=== PATIENT | female | born 1985 | race Caucasian/White ===

== ENCOUNTER 2018-05-30 15:14 | Outpatient (CLI) | payer OTHER ==
[2018-05-30] MEDS ORDERED: LANSOPRAZOLE 30 MG TAB.RAP.DR PO ONE (15:46)
[2018-05-30] MEDS ORDERED: LANSOPRAZOLE 30 MG TAB.RAP.DR ONE (15:54)
[2018-05-30 15:59] LABS: APPEARANCE,URINE CLOUDY; BILIRUBIN,URINE NEGATIVE (NEGATIVE); COLOR,URINE YELLOW; GLUCOSE, URINE NEGATIVE (NEGATIVE); KETONES,URINE NEGATIVE (NEGATIVE); LEUKOCYTE ESTERASE,URINE MODERATE (NEGATIVE); NITRITE,URINE NEGATIVE (NEGATIVE); PROTEIN,URINE NEGATIVE (NEGATIVE); URINE SPECIFIC GRAVITY 1.005; UROBILINOGEN,URINE NEGATIVE mg/dL (<2.0)
[2018-05-30 16:38] LABS: URINE AMPHETAMINES SCREEN NEGATIVE; URINE BARBITURATES SCREEN NEGATIVE; URINE BENZODIAZEPINES SCREEN NEGATIVE; URINE COCAINE SCREEN NEGATIVE; URINE MARIJUANA (THC) SCREEN NEGATIVE; URINE METHADONE SCREEN NEGATIVE; URINE PHENCYCLIDINE SCREEN NEGATIVE
[2018-05-30 16:38] LABS: HEMATOCRIT 27.7 % (36.0-47.0); HEMOGLOBIN 9.2 g/dL (12.0-15.5); MEAN CORPUSCULAR HEMOGLOBIN 24.7 pg (27.0-33.4); MEAN CORPUSCULAR HGB CONC 33.2 g/dL (32.0-36.0); MEAN CORPUSCULAR VOLUME 74 fl (80-97); PLATELET COUNT 244 10^3/uL (150-450); RED BLOOD COUNT 3.72 10^6/uL (3.72-5.28); RED CELL DISTRIBUTION WIDTH 15.6 % (11.5-14.0); WHITE BLOOD COUNT 9.4 10^3/uL (4.0-10.5)
[2018-05-30 16:41] LABS: UR PRO/CREAT RATIO RESULT 0.4 mg/mg (0.0-0.2); URINE CREATININE 39.4 mg/dL (16-327); URINE PROTEIN 15.3 mg/dL (<12)
[2018-05-30 16:56] LABS: ALANINE AMINOTRANSFERASE 16 U/L (9-52); ALKALINE PHOSPHATASE 138 U/L (38-126); ANION GAP 8 (5-19); ASPARTATE AMINO TRANSFERASE 18 U/L (14-36); BILIRUBIN,DIRECT 0.1 mg/dL (0.0-0.4); BILIRUBIN,TOTAL 0.3 mg/dL (0.2-1.3); BLOOD UREA NITROGEN 6 mg/dL (7-20); CALCIUM 9.2 mg/dL (8.4-10.2); CARBON DIOXIDE 24 mmol/L (22-30); CHLORIDE 104 mmol/L (98-107); GLUCOSE 69 mg/dL (75-110); POTASSIUM 4.4 mmol/L (3.6-5.0); SODIUM 136.3 mmol/L (137-145); TOTAL PROTEIN 5.7 g/dL (6.3-8.2); URIC ACID 4.8 mg/dL (2.5-6.2)
--- NOTE | 2018-05-30 17:38 | Non Stress Test Report ---
Non Stress Test Datetime Report Generated by CPN: 05/30/2018 17:38 DEMOGRAPHIC EGA NST: 39.3 INDICATION Indication for Study: Ordered by Provider MONITORING Monitor Explained: Monitor Explained; Test Explained; Patient Verbalized Understanding Time on Monitor: 05/30/2018 17:02 Time off Monitor: 05/30/2018 17:22 NST Duration: 20 NST INTERVENTIONS NST Interventions: None Physician Notified NST: Dr. Younger BABY A: [id number] BABY A Movement : Present Contraction Frequency : irregular FHR Baseline : 135 Accelerations : 15X15 Decelerations : None Variability : Moderate 6-25bpm NST Review: Meets Criteria for Reactive NST NST Review and Verified By : Dave العلي RN NST Results: Reactive NST REPORT Report Trigger: Send Report
== END 2018-05-30 17:36 | disposition home or self-care (01) ==
LOC: LC 15:14
PROVIDERS: ATTEND Obstetrics & Gynecology
PROC: 4A1HXCZ Monitoring of Products of Conception, Cardiac Rate, External Approach (ICD-10-PCS; principal; 2018-05-30)
DX: O16.3 Unspecified maternal hypertension, third trimester (principal); Z3A.39 39 weeks gestation of pregnancy
CPT/HCPCS: 36415; 59025; 80053; 80307; 81001; 82570; 83615; 84156; 84550; 85027

== ENCOUNTER 2018-06-01 14:22 | Inpatient (IN) | payer OTHER ==
[2018-06-01 15:13] LABS: HEMATOCRIT 27.4 % (36.0-47.0); MEAN CORPUSCULAR HEMOGLOBIN 24.4 pg (27.0-33.4); MEAN CORPUSCULAR HGB CONC 32.9 g/dL (32.0-36.0); MEAN CORPUSCULAR VOLUME 74 fl (80-97); PLATELET COUNT 254 10^3/uL (150-450); RED CELL DISTRIBUTION WIDTH 15.8 % (11.5-14.0); WHITE BLOOD COUNT 8.6 10^3/uL (4.0-10.5)
[2018-06-01 15:32] LABS: BLOOD UREA NITROGEN 5 mg/dL (7-20); GLUCOSE 104 mg/dL (75-110)
[2018-06-01 15:33] LABS: ALANINE AMINOTRANSFERASE 19 U/L (9-52); ALBUMIN 2.8 g/dL (3.5-5.0); ALKALINE PHOSPHATASE 141 U/L (38-126); ANION GAP 11 (5-19); ASPARTATE AMINO TRANSFERASE 17 U/L (14-36); BILIRUBIN,TOTAL 0.2 mg/dL (0.2-1.3); CARBON DIOXIDE 19 mmol/L (22-30); CHLORIDE 108 mmol/L (98-107); POTASSIUM 4.1 mmol/L (3.6-5.0); SODIUM 137.5 mmol/L (137-145); TOTAL PROTEIN 5.9 g/dL (6.3-8.2)
[2018-06-01 15:43] LABS: URINE PROTEIN 14.6 mg/dL (<12)
[2018-06-01 15:50] LABS: URINE AMPHETAMINES SCREEN NEGATIVE; URINE BARBITURATES SCREEN NEGATIVE; URINE BENZODIAZEPINES SCREEN NEGATIVE; URINE COCAINE SCREEN NEGATIVE; URINE MARIJUANA (THC) SCREEN NEGATIVE; URINE METHADONE SCREEN NEGATIVE; URINE PHENCYCLIDINE SCREEN NEGATIVE
[2018-06-01 15:52] LABS: 24 HOUR URINE PROTEIN RESULT 420 mg/day (42-225)
[2018-06-01 16:02] LABS: UR PRO/CREAT RATIO RESULT 0.3 mg/mg (0.0-0.2); URINE CREATININE 56.4 mg/dL (16-327); URINE PROTEIN 16.5 mg/dL (<12)
[2018-06-01] MEDS ORDERED: RINGERS SOLUTION,LACTATED 1,000 ML IV PRN (16:25)
[2018-06-01] MEDS ORDERED: DINOPROSTONE 10 MG VAGINAL INSERT.SR PV PRN (16:25)
[2018-06-01] MEDS ORDERED: RINGERS SOLUTION,LACTATED 300 ML IV ONE (16:25)
--- NOTE | 2018-06-01 16:42 | Admission Physical ---
Datetime Report Generated by CPN: 06/01/2018 16:42 CURRENT ADMISSION Chief Complaint: Scheduled Induction of Labor Indication for Induction: PreEclampsia Admit Impression : Term, Intrauterine Admit Plan: Admit to Unit; Initiate Labor Induction Protocol ALLERGIES Medication Allergies: No Medication Allergies: No Known Allergies (05/30/2018) Latex: No Latex Allergies OBSTETRICAL HISTORY EDC: 06/03/2018 00:00 : 1 Para: 0 Gestational Diabetes: No Rh Sensitization: No Incompetent Cervix: No JASWINDER: No Infertility: No ART Treatment: Yes Uterine Anomaly: No IUGR: No Hx Previous C/S: No Macrosomia: No Hx Loss/Stillborn: No PIH: No Hx : No Placenta Previa/Abruption: No Depression/PP Depression: Yes PTL/PROM: No Post Hemorrhage: No Current Procedures: Ultrasound; NST Obstetrical History Comments: G1: current SEE RECORDS Alcohol: No Marijuana : No Cocaine: No Other Illicit Drugs: No Cigarettes: Never Smoker. [id number] MEDICAL HISTORY Diabetes: No Blood Transfusion: No Pulmonary Disease (Asthma, TB): No Breast Disease: Yes Hypertension: No Casing Sewer Surgery: No Heart Disease: No Hosp/Surgery: No Autoimmune Disorder: No Anesthetic Complications: No Kidney Disease: No Abnormal Pap Smear: No Neuro/Epilepsy: No Psychiatric Disorders: No Other Medical Diseases: No Hepatitis/Liver Disease: No Significant Family History: No Varicosities/Phlebitis: No Trauma/Violence : No Thyroid Dysfunction: No Medical History Comments: depression, PTSD and anxiety, hx of binging and avoiding food fibromyalgia, migraines tumor removed from left breast 2014 INFECTIOUS HISTORY Gonorrhea: No Genital Herpes: No Chlamydia: No Tuberculosis: No Syphilis: No Hepatitis: No HIV/AIDS Exposure: No Rash or Viral Illness: No HPV: No PHYSICAL EXAM General: Normal HEENT: Normal Neurologic: Normal Thyroid: Normal Heart: Normal Lungs: Normal Breast: Normal Back: Normal Abdomen: Normal Genitourinary Exam: Normal Extremities: Normal DTRs: Normal Pelvic Type: Adequate VAGINAL EXAM Dilatation: 0 Effacement: 50 Station: -2 Contraction Comments: occassional MEMBRANES Membranes: Intact FETUS A EGA: 39.5 Monitoring: External US Admit Comment: at 39.5 wks for IOL due to Pre-eclampsia. Pt denies headache, blurred vision or epigastric pain. 24 hour urine was 420 mg Total Protein, Urine PCR 0.30. Pt with a hx of anxiety/ depression. Has a Service Dog with her for support. Hx of an eating disorder. Vtx today, GBS negative. Plan Cervidil overnight for Cervical ripening. Dr Traylor agrees with plan of care. PLANS FOR LABOR AND DELIVERY Labor and Delivery: None Pain Management: Epidural Feeding Preference: Breast Benefit of Breast Feed Discussed: Yes Circumcision: N/A INFORMED CONSENT Assignment: Zoila Traylor MD Signature: with User ID: Jennifer : with User ID: [email or web address]
[2018-06-01] MEDS ORDERED: DINOPROSTONE 10 MG VAGINAL INSERT.SR ONE (21:20)
[2018-06-01] MEDS ORDERED: ACETAMINOPHEN 325 MG TABLET ONE (21:57)
[2018-06-01] MEDS: ACETAMINOPHEN 325 MG TABLET PO PRN (22:04)
[2018-06-02] MEDS ORDERED: MAG HYDROX/AL HYDROX/SIMETH SUSP 30 ML UDCUP ONE (07:23)
[2018-06-02 08:50] LABS: ABSOLUTE BASOPHILS # (AUTO) 0.1 10^3/uL (0.0-0.2); ABSOLUTE EOSINOPHILS # (AUTO) 0.1 10^3/uL (0.0-0.6); ABSOLUTE LYMPHOCYTES (AUTO) 2.1 10^3/uL (0.5-4.7); ABSOLUTE MONOCYTES (AUTO) 0.6 10^3/uL (0.1-1.4); BASOPHILS % (AUTO) 0.5 % (0-2); EOSINOPHILS % (AUTO) 0.7 % (0-6); HEMATOCRIT 30.2 % (36.0-47.0); HEMOGLOBIN 9.8 g/dL (12.0-15.5); LYMPHOCYTES % (AUTO) 21.1 % (13-45); MEAN CORPUSCULAR HGB CONC 32.3 g/dL (32.0-36.0); MEAN CORPUSCULAR VOLUME 74 fl (80-97); MONOCYTES % (AUTO) 6.5 % (3-13); PLATELET COUNT 277 10^3/uL (150-450); RED BLOOD COUNT 4.07 10^6/uL (3.72-5.28); RED CELL DISTRIBUTION WIDTH 15.6 % (11.5-14.0); SEGMENTED NEUTROPHILS % (AUTO) 71.2 % (42-78); TOTAL CELLS COUNTED % (AUTO) 100 %; WHITE BLOOD COUNT 9.9 10^3/uL (4.0-10.5)
[2018-06-02] MEDS ORDERED: LORAZEPAM 0.5 MG TABLET PO ONE ×2 (08:56→17:44)
[2018-06-02 09:13] LABS: ALANINE AMINOTRANSFERASE 20 U/L (9-52); ALKALINE PHOSPHATASE 145 U/L (38-126); ANION GAP 7 (5-19); ASPARTATE AMINO TRANSFERASE 16 U/L (14-36); BILIRUBIN,DIRECT 0.1 mg/dL (0.0-0.4); BILIRUBIN,TOTAL 0.3 mg/dL (0.2-1.3); BLOOD UREA NITROGEN 5 mg/dL (7-20); CALCIUM 8.9 mg/dL (8.4-10.2); CARBON DIOXIDE 24 mmol/L (22-30); CHLORIDE 107 mmol/L (98-107); GLUCOSE 83 mg/dL (75-110); POTASSIUM 4.3 mmol/L (3.6-5.0); SODIUM 138.2 mmol/L (137-145); URIC ACID 4.1 mg/dL (2.5-6.2)
[2018-06-02] MEDS ORDERED: MISOPROSTOL 0.1 MG TABLET ONE (09:36)
--- NOTE | 2018-06-02 09:48 | L&D Progress Notes ---
PROGRESS NOTES Datetime Report Generated by CPN: 06/02/2018 09:47 PROGRESS NOTE Impression Other: Labor induction for preeclampsia Procedures: Sterile Vag Exam Plan: Induction; Cervical Ripening Vital Signs : Reviewed Comment: Pt given Ativan 0.5mg prior to exam to aid with anxiety VAGINAL EXAM Dilatation: 1 Effacement: 0 Station: -3 Contractions: occassional MEMBRANES Membranes: Intact FETUS A FHR - Baseline: 130 Monitoring: External US Variability: Moderate 6-25bpm Accelerations: 15X15 Decelerations: None SIGNATURE SIGNATURE: ,[id number];[id number];,[id number] SIGNATURE: ,[id number];[id number] SIGNATURE: ,[id number] Signature: with User ID: [email or web address]
[2018-06-02] MEDS ORDERED: LORAZEPAM 1 MG TABLET ONE (18:10)
[2018-06-02] MEDS ORDERED: NALBUPHINE HCL INJ 10 MG/1 ML AMPULE INJ PRN (19:37)
[2018-06-02] MEDS ORDERED: PROMETHAZINE HCL INJ 25 MG/1 ML VIAL IV ONE (19:37)
[2018-06-02] MEDS ORDERED: OXYTOCIN/NORMAL SALINE 20 UNIT/1,000 ML RTUINJ IV PRN (19:39)
[2018-06-02] MEDS ORDERED: OXYTOCIN/NORMAL SALINE 20 UNIT/1,000 ML RTUINJ ONE (19:53)
[2018-06-02] MEDS ORDERED: NALBUPHINE HCL INJ 10 MG/1 ML AMPULE ONE (19:54)
[2018-06-02] MEDS ORDERED: PROMETHAZINE HCL INJ 25 MG/1 ML VIAL ONE (19:54)
[2018-06-03] MEDS ORDERED: NALBUPHINE HCL INJ 10 MG/1 ML AMPULE ONE (00:18)
[2018-06-03] MEDS ORDERED: LORAZEPAM 0.5 MG TABLET PO ONE (02:29)
--- NOTE | 2018-06-03 02:32 | L&D Progress Notes ---
PROGRESS NOTES Datetime Report Generated by CPN: 06/03/2018 02:32 PROGRESS NOTE Impression Other: Unsure of labor progression as pt has been refusing exams Plan: Continue Present Management Vital Signs : Reviewed Vital Signs Comments: Mildly elevated BP Comment: Pt has been refusing recommended care and cervical exams most of the day. Examined by me and Cytotec placed at 0930am on 06/02. Pt refused 1530 exam. Nursing called _1800 stating pt wanted an exam because she felt like she was making a cervical change. She was unchanged at 1cm. Pitocin started at 2030. She is currently kevin q 1-2 min. At 0215, pt asked for epidural. She is counselled that a cervical exam is recommended prior to this so that this information can be relayed to the anesthesiologist and documented. Also, labor progression has not been evaluated in 8 hours. Pt refused the cervical exam; therefore, to keep with the standard of appropriate care in labor, an epidural will not be provided at this time. She may have IV anesthesia prn. VAGINAL EXAM Contractions: q 1-2min FETUS A FHR - Baseline: 135 Monitoring: External US Variability: Moderate 6-25bpm Accelerations: 15X15 Decelerations: None FHR Category: Category I FETUS C SIGNATURE: [id number];[id number];10,[id number] Signature: with User ID: [email or web address]
[2018-06-03] MEDS ORDERED: LORAZEPAM 1 MG TABLET ONE (02:33)
[2018-06-03] MEDS ORDERED: EPHEDRINE SULFATE INJ 50 MG/1 ML AMPULE ONE (03:50)
[2018-06-03] MEDS ORDERED: MISOPROSTOL 0.2 MG TABLET ONE (03:50)
[2018-06-03] MEDS ORDERED: LIDOCAINE 1% INJ-PF (10 MG/ML) 30 ML SDV ONE (03:50)
[2018-06-03] MEDS ORDERED: PHENYLEPHRINE HCL INJ/PF 10 MG/1 ML SDV ONE (03:50)
[2018-06-03] MEDS ORDERED: OXYTOCIN/NORMAL SALINE 0 UNIT/0 ML RTUINJ ONE (03:50)
[2018-06-03] MEDS ORDERED: FENTANYL CITRATE INJ/PF 100 MCG/2 ML AMPUL ONE (03:50)
[2018-06-03] MEDS ORDERED: BUPIVACAINE HCL 0.5 % INJ/PF 30 ML SDV ONE (03:51)
[2018-06-03] MEDS ORDERED: FENTANYL/BUPIVACAINE/NS/PF 300 MCG/150 ML RTUINJ EPI ONE (03:51)
[2018-06-03] MEDS ORDERED: LIDOCAINE 2% INJ-PF (20 MG/ML) 10 ML AMPUL ONE ×2 (08:32→12:05)
[2018-06-03] MEDS ORDERED: GENTAMICIN SULFATE INJ 80 MG/2 ML VIAL ONE ×2 (08:39→17:02)
[2018-06-03] MEDS ORDERED: AMPICILLIN SOD INJ 2 GM VIAL ONE ×3 (08:40→22:22)
[2018-06-03] MEDS ORDERED: GENTAMICIN SULFATE INJ 80 MG/2 ML VIAL IM SCH (08:45)
[2018-06-03] MEDS ORDERED: DEXTROSE 5%-LACTATED RINGERS 1,000 ML IV PRN (09:06)
[2018-06-03] MEDS ORDERED: GENTAMICIN SULFATE INJ 80 MG/2 ML VIAL IV SCH ×3 (09:15→22:00)
[2018-06-03] MEDS: AMPICILLIN SOD INJ 2 GM VIAL IV SCH ×2 (09:26→14:48)
[2018-06-03] MEDS ORDERED: ONDANSETRON HCL INJ/PF 4 MG/2 ML SDV ONE (09:28)
[2018-06-03] MEDS ORDERED: ONDANSETRON HCL INJ/PF 4 MG/2 ML SDV IV ONE (09:30)
--- NOTE | 2018-06-03 11:23 | L&D Progress Notes ---
PROGRESS NOTES Datetime Report Generated by CPN: 06/03/2018 11:23 PROGRESS NOTE Impression: Normal Progression of Labor Procedures: Sterile Vag Exam Plan: Continue Present Management; Induction Informed Consent Obtained: Vaginal Delivery; Induction of Labor; Risks, Benefits and Alternatives Discussed Comment: pt with dysfunctional contraction pattern upon taking over care. Pitocin stopped and D5W LR 250ml given and pitocin restarted and now pattern improved. Cvx with good change noted on re-examine. Discussed with patient plan of care. Amp/Gent started at assumption of care due to SROM 20 hours before. Reassuring FWB. Anticpate . VAGINAL EXAM Dilatation: 8 Effacement: 100 Station: 0 Contractions: q 2-3 FETUS A FHR - Baseline: 125 Monitoring: External US Variability: Moderate 6-25bpm Accelerations: 15X15 Decelerations: None FHR Category: Category I FETUS C SIGNATURE: [id number];14,[id number];13,[id number] Signature: with User ID: [email or web address]
[2018-06-03] MEDS ORDERED: ACETAMINOPHEN 325 MG TABLET ONE (14:44)
[2018-06-03] MEDS: ACETAMINOPHEN 325 MG TABLET PO PRN (14:47)
--- NOTE | 2018-06-03 15:09 | L&D Progress Notes ---
PROGRESS NOTES Datetime Report Generated by CPN: 06/03/2018 15:08 PROGRESS NOTE Impression: Normal Progression of Labor Procedures: Sterile Vag Exam Plan: Continue Present Management Informed Consent Obtained: Vaginal Delivery; Risks, Benefits and Alternatives Discussed Comment: Pt has been pushing since 1214. However, pushing has been on and off with pong pauses between pushing efforts with only approx 1.5 hours of total aggregate pushing. Pt has made some progress with pushing to +2 station. However, patient only pushing for very short efforts with 1/3 of contraction at most. Attempting to get patient to push more effectively with better pushing efforts and suggesting more appropriate pushing strategies including tug of war but patient does not feel that she can do so and wishes to have another break. Now discussion has turned to that she needs to put forth the effort since she has been ruptured for 26 hours and not febrile currently but feels warmer. Tylenol given. 2nd dose of ampicillin given. Reviewed with patient that more effort and effective pushing needs to occur so that baby can be delivered vaginally otherwise we may be needed to proceed with section. FETUS C SIGNATURE: [id number];14,[id number];10,[id number] Signature: with User ID: [email or web address]
[2018-06-03] MEDS ORDERED: OXYTOCIN 10 UNIT/ML VIAL ONE (15:52)
[2018-06-03] MEDS ORDERED: MEASLES,MUMPS&RUBELLA VACC/PF 0.5 ML VIAL SUBCUT PRN (16:30)
[2018-06-03] MEDS ORDERED: DIPH/PERTUSS(ACELL)/TETANUS VAC/PF 0.5 ML SYR (>=10YO) IM PRN (16:30)
[2018-06-03] MEDS ORDERED: PSEUDOEPHEDRINE HCL 30 MG TABLET PO PRN (16:30)
[2018-06-03] MEDS ORDERED: PROMETHAZINE HCL 25 MG TABLET PO PRN (16:30)
[2018-06-03] MEDS ORDERED: BENZOCAINE/MENTHOL AEROSOL SPRAY 56 ML TOP PRN (16:30)
[2018-06-03] MEDS ORDERED: ACETAMINOPHEN 325 MG TABLET PO PRN (16:30)
[2018-06-03] MEDS ORDERED: ACETAMINOPHEN 650 MG SUPP.RECT PR PRN (16:30)
[2018-06-03] MEDS ORDERED: PROMETHAZINE HCL 25 MG SUPP.RECT PR PRN (16:30)
[2018-06-03] MEDS ORDERED: ACETAMINOPHEN WITH CODEINE #3 TABLET PO PRN (16:30)
[2018-06-03] MEDS ORDERED: OXYTOCIN/NORMAL SALINE 20 UNIT/1,000 ML RTUINJ IV PRN (16:30)
[2018-06-03] MEDS ORDERED: MAGNESIUM HYDROXIDE SUSP 30 ML UDCUP PO PRN (16:30)
[2018-06-03] MEDS ORDERED: NA PHOS,M-B/NA PHOS,DI-BA (ADULT) 133 ML ENEMA PR PRN (16:30)
[2018-06-03] MEDS ORDERED: PROMETHAZINE HCL INJ 25 MG/1 ML VIAL IV PRN (16:30)
[2018-06-03] MEDS ORDERED: GLYCERIN/WITCH HAZEL LEAF 1 EACH MED..PAD TP PRN (16:30)
[2018-06-03] MEDS ORDERED: DIBUCAINE 1% OINTMENT 28 GM TP PRN (16:30)
[2018-06-03] MEDS ORDERED: DIPHENHYDRAMINE HCL 25 MG CAPSULE PO PRN (16:30)
[2018-06-03] MEDS ORDERED: ZOLPIDEM TARTRATE 5 MG TABLET PO PRN (16:30)
[2018-06-03 17:10] LABS: HEMATOCRIT 24.8 % (36.0-47.0); HEMOGLOBIN 8.1 g/dL (12.0-15.5); MEAN CORPUSCULAR HEMOGLOBIN 24.1 pg (27.0-33.4); MEAN CORPUSCULAR HGB CONC 32.6 g/dL (32.0-36.0); MEAN CORPUSCULAR VOLUME 74 fl (80-97); PLATELET COUNT 250 10^3/uL (150-450); RED BLOOD COUNT 3.35 10^6/uL (3.72-5.28); RED CELL DISTRIBUTION WIDTH 15.9 % (11.5-14.0)
[2018-06-03 17:23] LABS: WHITE BLOOD COUNT 22.3 10^3/uL (4.0-10.5)
[2018-06-03 17:26] LABS: ALANINE AMINOTRANSFERASE 23 U/L (9-52); ALBUMIN 2.4 g/dL (3.5-5.0); ALKALINE PHOSPHATASE 135 U/L (38-126); ANION GAP 10 (5-19); ASPARTATE AMINO TRANSFERASE 23 U/L (14-36); BILIRUBIN,TOTAL 0.4 mg/dL (0.2-1.3); BLOOD UREA NITROGEN 7 mg/dL (7-20); CALCIUM 8.3 mg/dL (8.4-10.2); CARBON DIOXIDE 17 mmol/L (22-30); CHLORIDE 108 mmol/L (98-107); GLUCOSE 111 mg/dL (75-110); POTASSIUM 4.1 mmol/L (3.6-5.0); TOTAL PROTEIN 5.1 g/dL (6.3-8.2); URIC ACID 5.1 mg/dL (2.5-6.2)
[2018-06-03 17:28] LABS: ABSOLUTE LYMPHOCYTES# (MANUAL) 1.6 10^3/uL (0.5-4.7); ABSOLUTE NEUTROPHILS# (MANUAL) 20.7 10^3/uL (1.7-8.2); BASOPHILS % (MANUAL) 0 % (0-2); EOSINOPHILS % (MANUAL) 0 % (0-6); LYMPHOCYTES % (MANUAL) 7 % (13-45); MONOCYTES % (MANUAL) 0 % (3-13); SEGMENTED NEUTROPHILS % (MAN) 93 % (42-78); TOTAL CELLS COUNTED 100
[2018-06-03 17:29] LABS: ANISOCYTOSIS SLIGHT; HYPOCHROMASIA 1+; PLATELET COMMENT ADEQUATE
[2018-06-03] MEDS ORDERED: IBUPROFEN 800 MG TABLET ONE (17:33)
[2018-06-03] MEDS ORDERED: BENZOCAINE/MENTHOL AEROSOL SPRAY 56 ML ONE (18:08)
[2018-06-03] MEDS: DOCUSATE SODIUM 100 MG CAPSULE PO SCH (19:53)
[2018-06-03] MEDS: FERROUS SULFATE 325 MG TABLET PO SCH (19:54)
[2018-06-03] MEDS ORDERED: AMPICILLIN SOD INJ 2 GM VIAL IV SCH (21:00)
[2018-06-03] MEDS ORDERED: AMPICILLIN SOD INJ 1 GM VIAL IV PRN (21:28)
[2018-06-03] MEDS ORDERED: GENTAMICIN SULFATE INJ 80 MG/2 ML VIAL IV PRN (21:30)
[2018-06-03] MEDS ORDERED: NIFEDIPINE 30 MG TAB.ER.24 PO ONE (22:00)
[2018-06-03] MEDS: GENTAMICIN SULFATE 160 MG in DEXTROSE 5%-WATER 100 ML IV SCH (22:18)
[2018-06-03] MEDS: AMPICILLIN SODIUM 2 GM in NORMAL SALINE 100 ML IV SCH (22:38)
[2018-06-03] MEDS: IBUPROFEN 800 MG TABLET PO SCH (22:39)
[2018-06-03] MEDS: FAMOTIDINE 20 MG TABLET PO SCH (22:40)
[2018-06-04] MEDS: ACETAMINOPHEN WITH CODEINE #3 TABLET PO PRN (00:28)
[2018-06-04] MEDS: AMPICILLIN SODIUM 2 GM in NORMAL SALINE 100 ML IV SCH ×4 (03:55→21:10)
[2018-06-04] MEDS ORDERED: GENTAMICIN SULFATE INJ 80 MG/2 ML VIAL ONE (04:42)
[2018-06-04] MEDS: IBUPROFEN 800 MG TABLET PO SCH ×3 (05:05→21:10)
[2018-06-04] MEDS: GENTAMICIN SULFATE 160 MG in DEXTROSE 5%-WATER 100 ML IV SCH ×3 (05:06→22:28)
[2018-06-04 07:53] LABS: MEAN CORPUSCULAR HEMOGLOBIN 24.1 pg (27.0-33.4); MEAN CORPUSCULAR HGB CONC 32.3 g/dL (32.0-36.0); MEAN CORPUSCULAR VOLUME 75 fl (80-97); PLATELET COUNT 171 10^3/uL (150-450); RED BLOOD COUNT 2.68 10^6/uL (3.72-5.28); RED CELL DISTRIBUTION WIDTH 15.9 % (11.5-14.0); WHITE BLOOD COUNT 16.7 10^3/uL (4.0-10.5)
[2018-06-04 07:55] LABS: HEMOGLOBIN 6.5 g/dL (12.0-15.5)
[2018-06-04] MEDS: PRENATAL VITAMIN W DHA CAPSULE PO SCH (09:20)
[2018-06-04] MEDS: FERROUS SULFATE 325 MG TABLET PO SCH ×2 (09:20→18:52)
[2018-06-04] MEDS: FAMOTIDINE 20 MG TABLET PO SCH ×2 (09:20→21:10)
[2018-06-04] MEDS: NIFEDIPINE 30 MG TAB.ER.24 PO SCH (09:21)
[2018-06-04] MEDS: DOCUSATE SODIUM 100 MG CAPSULE PO SCH ×2 (09:22→18:51)
[2018-06-04] MEDS ORDERED: NORMAL SALINE 250 ML IV PRN (12:57)
--- NOTE | 2018-06-04 12:57 | PDOC PROGRESS REPORT ---
Subjective-OB Progress Note for:: 06/04/18 Subjective: 32yo G1 now P1 s/p ppd1. Pt. ambulating and without difficulty. Denies SOB/dizziness/lightheadedness or other concerns. Agreeable to blood transfusion Physical Exam (OB) Vital Signs: Temp Pulse Resp BP Pulse Ox 98.0 F 96 16 123/69 96 06/04/18 07:43 06/04/18 07:43 06/04/18 07:43 06/04/18 07:43 06/04/18 07:43 Intake & Output 06/03/18 06/04/18 06/05/18 06:59 06:59 06:59 Intake Total 1000 200 Balance 1000 200 Weight 107 kg - General General Appearance: Appears well In distress: None - PIH/Pre-Eclampsia DTR's: 1 + Clonus: Negative Headache: Absent Epigastric Pain: No Visual Changes: No - Episiotomy/Laceration Site Condition: Well Approximated, Edematous, N/A - Lochia Lochia Amount: Small 10-25 ml Lochia Color: Rubra/Red - Abdomen Description: Soft Hernia Present: No Fundal Description: Firm, Midline Fundal Height: u/u - u/2 - Respiratory Respiratory Status: No respiratory distress Chest Status: Nontender - Extremities Upper extremity: Edema Lower extremities: Normal inspection - Neurological Cognition: Normal Orientation: AAOx4 - Psychological Associated symptoms: Normal affect, Normal mood Objective-Diagnostic Laboratory: 06/04/18 07:21 06/03/18 16:59 06/03/18 06/03/18 06/03/18 16:59 16:59 16:59 WBC 22.3 H D RBC 3.35 L Hgb 8.1 L Hct 24.8 L MCV 74 L MCH 24.1 L MCHC 32.6 RDW 15.9 H Plt Count 250 Seg Neutrophils % Not Reportable Lymphocytes % Not Reportable Monocytes % Not Reportable Eosinophils % Not Reportable Basophils % Not Reportable Absolute Neutrophils Not Reportable Absolute Lymphocytes Not Reportable Absolute Monocytes Not Reportable Absolute Eosinophils Not Reportable Absolute Basophils Not Reportable Sodium 135.0 L Potassium 4.1 Chloride 108 H Carbon Dioxide 17 L Anion Gap 10 BUN 7 Creatinine 0.67 Est GFR ( Amer) > 60 Est GFR (Non-Af Amer) > 60 Glucose 111 H Uric Acid 5.1 Calcium 8.3 L Total Bilirubin 0.4 AST 23 ALT 23 Alkaline Phosphatase 135 H Total Protein 5.1 L Albumin 2.4 L Blood Type O POSITIVE Antibody Screen NEGATIVE 06/04/18 07:21 WBC 16.7 H RBC 2.68 L Hgb 6.5 L Hct 20.0 L MCV 75 L MCH 24.1 L MCHC 32.3 RDW 15.9 H Plt Count 171 Seg Neutrophils % Lymphocytes % Monocytes % Eosinophils % Basophils % Absolute Neutrophils Absolute Lymphocytes Absolute Monocytes Absolute Eosinophils Absolute Basophils Sodium Potassium Chloride Carbon Dioxide Anion Gap BUN Creatinine Est GFR ( Amer) Est GFR (Non-Af Amer) Glucose Uric Acid Calcium Total Bilirubin AST ALT Alkaline Phosphatase Total Protein Albumin Blood Type Antibody Screen Assessment and Plan(PN) - Assessment and Plan (1) Anemia due to acute blood loss Is this a current diagnosis for this admission?: Yes Plan: 2 units of blood ordered, will transfuse and increase iron to bid as well as increase dietary intake of iron. Continue to monitor for s/s of decompensation or additional hemorrhage. Dr. العراقي who is the MD propulsion generator repairer agrees with plan of care (2) hemorrhage Qualifiers: hemorrhage type: other immediate Qualified Code(s): O72.1 - Other immediate hemorrhage Is this a current diagnosis for this admission?: Yes Plan: bleeding stable now. blood transfusion ordered, continue to monitor (3) Obstetrical laceration, second degree Is this a current diagnosis for this admission?: Yes Plan: routine pp care, monitor for s/s of infection. (4) Vaginal delivery Is this a current diagnosis for this admission?: Yes Plan: routine pp care (5) Pre-eclampsia Qualifiers: Trimester: unspecified trimester Qualified Code(s): O14.90 - Unspecified pre-eclampsia, unspecified trimester Is this a current diagnosis for this admission?: Yes Plan: continue to monitor - Time Spent with Patient Time with patient: Less than 15 minutes Medications reviewed and adjusted accordingly: Yes - Disposition Anticipated Discharge: Home Within: within 24 hours
[2018-06-04] MEDS ORDERED: MEASLES,MUMPS&RUBELLA VACC/PF 0.5 ML VIAL SUBCUT PRN (13:30)
[2018-06-04] MEDS ORDERED: DIPH/PERTUSS(ACELL)/TETANUS VAC/PF 0.5 ML SYR (>=10YO) IM PRN (13:30)
[2018-06-04] MEDS ORDERED: PROMETHAZINE HCL INJ 25 MG/1 ML VIAL IV PRN (13:30)
[2018-06-04] MEDS ORDERED: FUROSEMIDE 20 MG TABLET PO ONE (19:30)
[2018-06-04] MEDS: SENNOSIDES/DOCUSATE 8.6-50 MG 1 EACH TABLET PO SCH (20:50)
[2018-06-05] MEDS: ACETAMINOPHEN WITH CODEINE #3 TABLET PO PRN ×2 (00:25→12:08)
[2018-06-05] MEDS: AMPICILLIN SODIUM 2 GM in NORMAL SALINE 100 ML IV SCH ×4 (03:43→21:41)
[2018-06-05] MEDS: IBUPROFEN 800 MG TABLET PO SCH ×3 (05:23→21:32)
[2018-06-05] MEDS: GENTAMICIN SULFATE 160 MG in DEXTROSE 5%-WATER 100 ML IV SCH ×3 (05:23→21:41)
[2018-06-05 06:17] LABS: ABSOLUTE BASOPHILS # (AUTO) 0.1 10^3/uL (0.0-0.2); ABSOLUTE EOSINOPHILS # (AUTO) 0.1 10^3/uL (0.0-0.6); ABSOLUTE LYMPHOCYTES (AUTO) 3.9 10^3/uL (0.5-4.7); ABSOLUTE MONOCYTES (AUTO) 0.8 10^3/uL (0.1-1.4); ABSOLUTE NEUT (AUTO) 7.2 10^3/uL (1.7-8.2); BASOPHILS % (AUTO) 0.9 % (0-2); EOSINOPHILS % (AUTO) 1.2 % (0-6); HEMATOCRIT 24.1 % (36.0-47.0); HEMOGLOBIN 8.3 g/dL (12.0-15.5); LYMPHOCYTES % (AUTO) 32.1 % (13-45); MEAN CORPUSCULAR HEMOGLOBIN 25.9 pg (27.0-33.4); MEAN CORPUSCULAR HGB CONC 34.5 g/dL (32.0-36.0); MEAN CORPUSCULAR VOLUME 75 fl (80-97); MONOCYTES % (AUTO) 6.9 % (3-13); PLATELET COUNT 232 10^3/uL (150-450); RED BLOOD COUNT 3.22 10^6/uL (3.72-5.28); RED CELL DISTRIBUTION WIDTH 16.7 % (11.5-14.0); SEGMENTED NEUTROPHILS % (AUTO) 58.9 % (42-78); TOTAL CELLS COUNTED % (AUTO) 100 %; WHITE BLOOD COUNT 12.3 10^3/uL (4.0-10.5)
--- NOTE | 2018-06-05 08:40 | PDOC PROGRESS REPORT ---
Subjective-OB Progress Note for:: 06/05/18 Subjective: OOB in room, ready to go home, walking, feels ok, hsb and dog at BS Physical Exam (OB) Vital Signs: Temp Pulse Resp BP Pulse Ox 97.4 F 96 16 150/96 H 99 06/05/18 07:56 06/05/18 07:56 06/05/18 07:56 06/05/18 07:56 06/05/18 07:56 Intake & Output 06/04/18 06/05/18 06/06/18 06:59 06:59 06:59 Intake Total 1104 3208 Balance 1104 3208 - PIH/Pre-Eclampsia DTR's: 1 + Clonus: Negative Headache: Absent Epigastric Pain: No Visual Changes: No - Lochia Lochia Amount: Scant < 10 ml Lochia Color: Rubra/Red - Abdomen Description: Soft Hernia Present: No Fundal Description: Firm, Midline Fundal Height: u/u - u/2 Objective-Diagnostic Laboratory: 06/05/18 06:04 06/03/18 16:59 06/03/18 06/05/18 16:59 06:04 WBC 12.3 H RBC 3.22 L Hgb 8.3 L Hct 24.1 L MCV 75 L MCH 25.9 L MCHC 34.5 RDW 16.7 H Plt Count 232 Seg Neutrophils % 58.9 Lymphocytes % 32.1 Monocytes % 6.9 Eosinophils % 1.2 Basophils % 0.9 Absolute Neutrophils 7.2 Absolute Lymphocytes 3.9 Absolute Monocytes 0.8 Absolute Eosinophils 0.1 Absolute Basophils 0.1 Blood Type O POSITIVE Antibody Screen NEGATIVE Assessment and Plan(PN) - Assessment and Plan (1) Anemia due to acute blood loss Is this a current diagnosis for this admission?: Yes (2) hemorrhage Qualifiers: hemorrhage type: other immediate Qualified Code(s): O72.1 - Other immediate hemorrhage Is this a current diagnosis for this admission?: Yes (3) Obstetrical laceration, second degree Is this a current diagnosis for this admission?: Yes (4) Vaginal delivery Is this a current diagnosis for this admission?: Yes (5) Pre-eclampsia Qualifiers: Trimester: unspecified trimester Qualified Code(s): O14.90 - Unspecified pre-eclampsia, unspecified trimester Is this a current diagnosis for this admission?: Yes - Time Spent with Patient Time with patient: Less than 15 minutes Medications reviewed and adjusted accordingly: Yes - Disposition Anticipated Discharge: Home Within: within 24 hours
[2018-06-05] MEDS: FERROUS SULFATE 325 MG TABLET PO SCH ×2 (09:06→17:37)
[2018-06-05] MEDS: SENNOSIDES/DOCUSATE 8.6-50 MG 1 EACH TABLET PO SCH (09:07)
[2018-06-05] MEDS: DOCUSATE SODIUM 100 MG CAPSULE PO SCH ×2 (09:07→17:37)
[2018-06-05] MEDS: PRENATAL VITAMIN W DHA CAPSULE PO SCH (09:07)
[2018-06-05] MEDS: NIFEDIPINE 30 MG TAB.ER.24 PO SCH (09:07)
[2018-06-05] MEDS: FAMOTIDINE 20 MG TABLET PO SCH ×2 (09:07→21:31)
[2018-06-06] MEDS: ACETAMINOPHEN WITH CODEINE #3 TABLET PO PRN (01:19)
[2018-06-06] MEDS: IBUPROFEN 800 MG TABLET PO SCH ×2 (05:31→13:16)
[2018-06-06 06:23] LABS: HEMATOCRIT 24.7 % (36.0-47.0); HEMOGLOBIN 8.6 g/dL (12.0-15.5); MEAN CORPUSCULAR HEMOGLOBIN 26.4 pg (27.0-33.4); MEAN CORPUSCULAR HGB CONC 34.7 g/dL (32.0-36.0); MEAN CORPUSCULAR VOLUME 76 fl (80-97); PLATELET COUNT 258 10^3/uL (150-450); RED BLOOD COUNT 3.24 10^6/uL (3.72-5.28)
--- NOTE | 2018-06-06 08:32 | Delivery Summary ---
Del Sum A-C Datetime Report Generated by CPN: 06/06/2018 08:32 DELIVERY PERSONNEL DELIVERY PERSONNEL: [id number] Delivery Doctor:: Zoila Traylor MD Anesthesiologist:: Chapo Arias MD Labor and Delivery Nurse:: Raquel Pride RNbirthing nurse Nurse:: Anusha Carrera RN Spindle Repairer/DOCUMENTATION SUPERVISOR: Eva Escalonaa, ST MATERNAL INFORMATION Delivery Anesthesia: Epidural Medications After Delivery: Pitocin 10 Units IM; Pitocin Drip 20 Units/1000ml NSS; Cytotec 1000mcg Per Rectum/Vagina Provider Comments: VFI delivered in DARIN presentation. No nuchal cord. Shoulders and body delivered without difficulty. Cord doubly clamped and cut and to maternal abd for NRP. Placenta delivered intact spontaneously. FF at U with lower uterine segment atonic responded with IV pitocin and IM pitocin into lower uterine segment. 2nd degree laceration and bilateral labial lacerations repaired in usual fashion. 1000mcg of cytotec placed per rectum. Good hemostasis. mother and babcy stable upon provider leaving the room. LABOR SUMMARY EDC: 06/03/2018 00:00 No. Babies in Womb: 1 Attempted: No Labor Anesthesia: Epidural LABOR INFORMATION Reason for Induction: Pre-Eclampsia Onset of Labor: 06/03/2018 03:10 Complete Dilatation: 06/03/2018 11:43 Cervical Ripening Agents: Cervidil; Olivera Balloon Cervical Ripening Agents: Cervidil Oxytocin: Induction Group B Beta Strep: negative Antibiotics # of Doses: 2 Antibiotics Time of Last Dose: 1500 Name of Antibiotic Given: Ampicillin and Gentimycin Steroids Given: None Reason Steroids Not Administered: Not Applicable MEMBRANES Membranes Rupture Method: Spontaneous Rupture of Membranes: 06/02/2018 12:00 Length of Rupture (hr): 27.68 Amniotic Fluid Color: Clear Amniotic Fluid Amount: Small Amniotic Fluid Odor: Normal STAGES OF LABOR Stage 1 hr: 8 Stage 1 min: 33 Stage 2 hr: 3 Stage 2 min: 58 Stage 3 hr: 0 Stage 3 min: 10 Total Time in Labor hr: 12 Total Time in Labor min: 41 VAGINAL DELIVERY Episiotomy: None Laceration #1: Perineal; Vaginal Laceration Extension #1: Second Degree Laceration Repair: Yes Laceration Repair Note: repaired with good hemostasis Sponge Count Correct: Yes Sharps Count Correct: Yes CSECTION DELIVERY Primary Indication: N/A Secondary Indication: N/A CSection Incidence: N/A Labor: N/A Elective: N/A CSection Incision: N/A BABY A INFORMATION Infant Delivery Date/Time: 06/03/2018 15:41 Method of Delivery: Vaginal Method of Delivery: Vaginal Born in Route : No : N/A Forceps: N/A Vacuum Extraction: N/A Shoulder Dystocia : No PRESENTATION/POSITION BABY A Presentation: Cephalic Cephalic Presentation: Vertex Vertex Position: Left Occipital Anterior Breech Presentation: N/A PLACENTA INFORMATION BABY A Placenta Delivery Time : 06/03/2018 15:51 Placenta Method of Delivery: Spontaneous Placenta Status: Delivered SCORES BABY A Heart Rate 1 min: >100 bpm Resp Effort 1 min: Good Cry Reflex Irritability 1 min: Cough or Sneeze or Pulls Away Muscle Tone 1 min: Active Motion Color 1 min: Blue/Pale Resuscitation Effort 1 min: Tactile Stimulation SCORE 1 MIN: 8 Heart Rate 5 min: >100 bpm Resp Effort 5 min: Good Cry Reflex Irritability 5 min: Cough or Sneeze or Pulls Away Muscle Tone 5 min: Active Motion Color 5 min: Body Cook, Extremities Blue Resuscitation Effort 5 min: N/A SCORE 5 MIN: 9 INFORMATION BABY A Gestational Age at Delivery: 40.0 Gestational Status: Full Term- 39- 40.6 Weeks Outcome : Liveborn Infant Condition : Stable Sex: Female Sex: Female IDENTIFICATION BABY A Infant Verification Date/Time: 06/03/2018 16:55 ID Band Number: [id number] Mother's Name Verified: Yes Infant RN Verifying Infant: B Baidy RN/H Bigg RN WEIGHT/LENGTH BABY A Birthweight (gm): 3940 Infant Weight (lb): 8 Weight (oz): 11 Infant Length (in): 21.50 Infant Length (cm): 54.61 CORD INFORMATION BABY A No. Cord Vessels: 3 Nuchal Cord : N/A Cord Blood Taken: Yes-For Eval (Mom's Blood Type - or O+) Infant Suction: None ASSESSMENT BABY A Complications: None Physical Findings at Delivery: Caput Succedaneum; Molding of the Head Respirations: Appears Normal Continuity Reader/ALS Called : No Infant Care By: B Baidy RN Transferred To: Remains with Mother BABY B INFORMATION : N/A SIGNATURES Signature: with User ID: [email or web address]
[2018-06-06] MEDS: PRENATAL VITAMIN W DHA CAPSULE PO SCH (09:48)
[2018-06-06] MEDS: DOCUSATE SODIUM 100 MG CAPSULE PO SCH (09:48)
[2018-06-06] MEDS: FERROUS SULFATE 325 MG TABLET PO SCH (09:49)
[2018-06-06] MEDS: NIFEDIPINE 30 MG TAB.ER.24 PO SCH (09:49)
[2018-06-06] MEDS: FAMOTIDINE 20 MG TABLET PO SCH (09:49)
[2018-06-06] MEDS: SENNOSIDES/DOCUSATE 8.6-50 MG 1 EACH TABLET PO SCH (09:49)
--- NOTE | 2018-06-06 09:57 | PDOC DISCHARGE SUMMARY ---
Final Diagnosis Discharge Date: 06/06/18 - PP Day #3, doing well this mornning, denies headache , states is sore, , O+ Rubella Immune - Final Diagnosis (1) Anemia due to acute blood loss Is this a current diagnosis for this admission?: Yes (2) Obstetrical laceration, second degree Is this a current diagnosis for this admission?: Yes (3) hemorrhage Is this a current diagnosis for this admission?: Yes (4) Pre-eclampsia Is this a current diagnosis for this admission?: Yes (5) Vaginal delivery Is this a current diagnosis for this admission?: Yes Discharge Data - Discharge Medication Prescriptions: Ferrous Sulfate [Feosol 325 mg Tablet] 325 mg PO DAILY 30 Days #30 tablet Ibuprofen [Motrin 800 mg Tablet] 800 mg PO Q8 #60 tablet Nifedipine [Procardia XL 30 mg Tablet] 30 mg PO DAILY #30 tab.er.24 Home Medications: Vit Calc,Iron,Folic [ Vitamins] 1 tab PO DAILY 05/30/18 Ferrous Sulfate [Feosol 325 mg Tablet] 325 mg PO DAILY 30 Days #30 tablet Ibuprofen [Motrin 800 mg Tablet] 800 mg PO Q8 #60 tablet 06/06/18 Nifedipine [Procardia XL 30 mg Tablet] 30 mg PO DAILY #30 tab.er.24 06/06/18 Reason(s) for Admission: Induction of Labor, PIH Procedures: NST, Ultrasound Intrapartum Procedure(s): Spontaneous Vaginal Delivery - Diagnosis Test Laboratory: Temp Pulse Resp BP Pulse Ox 98.1 F 94 15 125/62 100 06/06/18 08:02 06/06/18 08:02 06/06/18 08:02 06/06/18 08:02 06/06/18 08:02 06/01/18 06/01/18 06/02/18 14:30 14:57 08:40 RBC 3.70 L 4.07 Hgb 9.0 L 9.8 L Hct 27.4 L 30.2 L Urine Opiates Screen NEGATIVE 06/03/18 06/04/18 06/05/18 16:59 07:21 06:04 RBC 3.35 L 2.68 L 3.22 L Hgb 8.1 L 6.5 L 8.3 L Hct 24.8 L 20.0 L 24.1 L Urine Opiates Screen 06/06/18 06:12 RBC 3.24 L Hgb 8.6 L Hct 24.7 L Urine Opiates Screen - Discharge information/Instructions Discharge Activity: Activity As Tolerated, No Lifting Over 10 Pounds, Pelvic Rest Discharge Diet: As Tolerated, Regular Disposition: HOME, SELF-CARE Follow up with: [facility] in: 1, Weeks - for a BP check
[2018-06-06 13:50] VITALS: BP 150/90
== END 2018-06-06 13:37 | disposition home or self-care (01) | DRG 806 ==
LOC: LC 14:22 → LR 16:55 → 2S 06-03 19:33
PROVIDERS: ADMIT Student in an Organized Health Care Education/Training Program; ATTEND Student in an Organized Health Care Education/Training Program
PROC: 4A1HXCZ Monitoring of Products of Conception, Cardiac Rate, External Approach (ICD-10-PCS; 2018-06-01)
PROC: 3E0P7VZ Introduction of Hormone into Female Reproductive, Via Natural or Artificial Opening (ICD-10-PCS; 2018-06-02)
PROC: 3E033VJ Introduction of Other Hormone into Peripheral Vein, Percutaneous Approach (ICD-10-PCS; 2018-06-02)
PROC: 10E0XZZ Delivery of Products of Conception, External Approach (ICD-10-PCS; principal; 2018-06-03)
PROC: 0KQM0ZZ Repair Perineum Muscle, Open Approach (ICD-10-PCS; 2018-06-03)
PROC: 30233N1 Transfusion of Nonautologous Red Blood Cells into Peripheral Vein, Percutaneous Approach (ICD-10-PCS; 2018-06-04)
PROC: 3E0234Z Introduction of Serum, Toxoid and Vaccine into Muscle, Percutaneous Approach (ICD-10-PCS; 2018-06-06)
DX: O14.94 Unspecified pre-eclampsia, complicating childbirth (principal); D62 Acute posthemorrhagic anemia; O99.354 Diseases of the nervous system complicating childbirth; O99.02 Anemia complicating childbirth; O70.1 Second degree perineal laceration during delivery; O72.1 Other immediate postpartum hemorrhage; G43.909 Migraine, unspecified, not intractable, without status migrainosus; F32.9 Major depressive disorder, single episode, unspecified; F43.10 Post-traumatic stress disorder, unspecified; O99.344 Other mental disorders complicating childbirth; F41.9 Anxiety disorder, unspecified; Z23 Encounter for immunization; Z28.21 Immunization not carried out because of patient refusal; Z3A.40 40 weeks gestation of pregnancy; Z37.0 Single live birth
CPT/HCPCS: 36415; 36430; 80053; 80307; 82570; 83615; 84156; 84550; 85025; 85027; 86850; 86900; 86901; 86920; 90715; J0290; J1580; J2300; J2370; J2405; J2550; J2590; J3010; J3490; P9016

== ENCOUNTER 2018-06-08 16:59 | Outpatient (CLI) | payer OTHER ==
--- NOTE | 2018-06-08 17:02 | Delivery Summary ---
Del Sum A-C Datetime Report Generated by CPN: 06/08/2018 17:01 DELIVERY PERSONNEL DELIVERY PERSONNEL: [id number] Delivery Doctor:: Zoila Traylor MD Anesthesiologist:: Chapo Arias MD Labor and Delivery Nurse:: Raquel Pride RNsample tester grinder Nurse:: Anusha Carrera RN Training Program Manager/HYDRAULIC JACK ADJUSTER: Eva Escalonaa, ST MATERNAL INFORMATION Delivery Anesthesia: Epidural Medications After Delivery: Pitocin 10 Units IM; Pitocin Drip 20 Units/1000ml NSS; Cytotec 1000mcg Per Rectum/Vagina Provider Comments: VFI delivered in DARIN presentation. No nuchal cord. Shoulders and body delivered without difficulty. Cord doubly clamped and cut and to maternal abd for NRP. Placenta delivered intact spontaneously. FF at U with lower uterine segment atonic responded with IV pitocin and IM pitocin into lower uterine segment. 2nd degree laceration and bilateral labial lacerations repaired in usual fashion. 1000mcg of cytotec placed per rectum. Good hemostasis. mother and babcy stable upon provider leaving the room. LABOR SUMMARY EDC: 06/03/2018 00:00 No. Babies in Womb: 1 Attempted: No Labor Anesthesia: Epidural LABOR INFORMATION Reason for Induction: Pre-Eclampsia Onset of Labor: 06/03/2018 03:10 Complete Dilatation: 06/03/2018 11:43 Cervical Ripening Agents: Cervidil; Olivera Balloon Oxytocin: Induction Group B Beta Strep: negative Antibiotics # of Doses: 2 Antibiotics Time of Last Dose: 1500 Name of Antibiotic Given: Ampicillin and Gentimycin Steroids Given: None Reason Steroids Not Administered: Not Applicable MEMBRANES Membranes Rupture Method: Spontaneous Rupture of Membranes: 06/02/2018 12:00 Length of Rupture (hr): 27.68 Amniotic Fluid Color: Clear Amniotic Fluid Amount: Small Amniotic Fluid Odor: Normal STAGES OF LABOR Stage 1 hr: 8 Stage 1 min: 33 Stage 2 hr: 3 Stage 2 min: 58 Stage 3 hr: 0 Stage 3 min: 10 Total Time in Labor hr: 12 Total Time in Labor min: 41 VAGINAL DELIVERY Episiotomy: None Laceration #1: Perineal; Vaginal Laceration Extension #1: Second Degree Laceration Repair: Yes Laceration Repair Note: repaired with good hemostasis Sponge Count Correct: Yes Sharps Count Correct: Yes CSECTION DELIVERY Primary Indication: N/A Secondary Indication: N/A CSection Incidence: N/A Labor: N/A Elective: N/A CSection Incision: N/A BABY A INFORMATION Infant Delivery Date/Time: 06/03/2018 15:41 Method of Delivery: Vaginal Born in Route : No : N/A Forceps: N/A Vacuum Extraction: N/A Shoulder Dystocia : No PRESENTATION/POSITION BABY A Presentation: Cephalic Cephalic Presentation: Vertex Vertex Position: Left Occipital Anterior Breech Presentation: N/A PLACENTA INFORMATION BABY A Placenta Delivery Time : 06/03/2018 15:51 Placenta Method of Delivery: Spontaneous Placenta Status: Delivered SCORES BABY A Heart Rate 1 min: >100 bpm Resp Effort 1 min: Good Cry Reflex Irritability 1 min: Cough or Sneeze or Pulls Away Muscle Tone 1 min: Active Motion Color 1 min: Blue/Pale Resuscitation Effort 1 min: Tactile Stimulation SCORE 1 MIN: 8 Heart Rate 5 min: >100 bpm Resp Effort 5 min: Good Cry Reflex Irritability 5 min: Cough or Sneeze or Pulls Away Muscle Tone 5 min: Active Motion Color 5 min: Body [place], Extremities Blue Resuscitation Effort 5 min: N/A SCORE 5 MIN: 9 INFANT INFORMATION BABY A Gestational Age at Delivery: 40.0 Gestational Status: Full Term- 39- 40.6 Weeks Infant Outcome : Liveborn Condition : Stable Infant Sex: Female IDENTIFICATION BABY A Infant Verification Date/Time: 06/03/2018 16:55 ID Band Number: [id number] Mother's Name Verified: Yes Infant RN Verifying Infant: B Baidy RN/H Bigg RN WEIGHT/LENGTH BABY A Birthweight (gm): 3940 Infant Weight (lb): 8 Infant Weight (oz): 11 Infant Length (in): 21.50 Infant Length (cm): 54.61 CORD INFORMATION BABY A No. Cord Vessels: 3 Nuchal Cord : N/A Cord Blood Taken: Yes-For Eval (Mom's Blood Type - or O+) Infant Suction: None ASSESSMENT BABY A Complications: None Physical Findings at Delivery: Caput Succedaneum; Molding of the Head Infant Respirations: Appears Normal Cotton Grower/ALS Called : No Infant Care By: B Baidy RN Transferred To: Remains with Mother BABY B INFORMATION : N/A SIGNATURES Signature: with User ID: [email or web address]
[2018-06-08 18:05] LABS: ABSOLUTE BASOPHILS # (AUTO) 0.1 10^3/uL (0.0-0.2); ABSOLUTE EOSINOPHILS # (AUTO) 0.1 10^3/uL (0.0-0.6); ABSOLUTE LYMPHOCYTES (AUTO) 2.2 10^3/uL (0.5-4.7); ABSOLUTE MONOCYTES (AUTO) 0.5 10^3/uL (0.1-1.4); ABSOLUTE NEUT (AUTO) 7.1 10^3/uL (1.7-8.2); BASOPHILS % (AUTO) 0.9 % (0-2); EOSINOPHILS % (AUTO) 1.1 % (0-6); HEMATOCRIT 30.1 % (36.0-47.0); HEMOGLOBIN 9.9 g/dL (12.0-15.5); LYMPHOCYTES % (AUTO) 22.1 % (13-45); MEAN CORPUSCULAR HGB CONC 32.8 g/dL (32.0-36.0); MEAN CORPUSCULAR VOLUME 79 fl (80-97); MONOCYTES % (AUTO) 4.7 % (3-13); PLATELET COUNT 359 10^3/uL (150-450); RED BLOOD COUNT 3.81 10^6/uL (3.72-5.28); RED CELL DISTRIBUTION WIDTH 17.9 % (11.5-14.0); SEGMENTED NEUTROPHILS % (AUTO) 71.2 % (42-78); TOTAL CELLS COUNTED % (AUTO) 100 %
[2018-06-08 18:22] LABS: ALANINE AMINOTRANSFERASE 26 U/L (9-52); ALBUMIN 3.4 g/dL (3.5-5.0); ALKALINE PHOSPHATASE 133 U/L (38-126); ANION GAP 10 (5-19); ASPARTATE AMINO TRANSFERASE 28 U/L (14-36); BILIRUBIN,DIRECT 0.1 mg/dL (0.0-0.4); BILIRUBIN,TOTAL 0.3 mg/dL (0.2-1.3); BLOOD UREA NITROGEN 8 mg/dL (7-20); CALCIUM 9.5 mg/dL (8.4-10.2); CARBON DIOXIDE 28 mmol/L (22-30); CHLORIDE 101 mmol/L (98-107); GLUCOSE 77 mg/dL (75-110); POTASSIUM 4.1 mmol/L (3.6-5.0); SODIUM 139.1 mmol/L (137-145); TOTAL PROTEIN 6.3 g/dL (6.3-8.2); URIC ACID 5.3 mg/dL (2.5-6.2)
[2018-06-08 18:39] LABS: UR PRO/CREAT RATIO RESULT 0.2 mg/mg (0.0-0.2); URINE CREATININE 146.6 mg/dL (16-327); URINE PROTEIN 35.7 mg/dL (<12)
--- NOTE | 2018-06-08 19:08 | L&D Progress Notes ---
PROGRESS NOTES Datetime Report Generated by CPN: 06/08/2018 19:08 PROGRESS NOTE Impression Other: elevated BP in the office Procedures- Other: PIH labs Plan Other: monitor Vital Signs : Reviewed Vital Signs Comments: Elevated BP pp and at home Comment: Pt here today c/o a mild headache and seeing spots while shopping. Discharged on Procardia 30 mg. She had PPH and received 2 units of blood. Her PIH labs are normal. She only rated her CEBALLOS a 1/10. Elevated BPs in triage. Instructed to monitor BP at home. May need to increase Procardia to 60 mg. Instructed to increase now to 1 1/2 pills qd. Pill cutter provided. More than likely she had a BP spike which caused her symptoms. She has an appt next week in the office FETUS A FHR - Baseline: N/A FETUS C SIGNATURE: [id number];14,[id number];10,[id number];15,[id number] SIGNATURE: [id number];10,[id number];14,[id number];13,[id number] Signature: with User ID: [email or web address]
== END 2018-06-08 19:10 | disposition home or self-care (01) ==
LOC: LC 16:59
PROVIDERS: ATTEND Obstetrics & Gynecology
DX: O16.5 Unspecified maternal hypertension, complicating the puerperium (principal)
CPT/HCPCS: 36415; 80053; 82570; 83615; 84156; 84550; 85025